=== PATIENT | male | born 1990 | race Caucasian/White ===

== ENCOUNTER 2017-07-31 17:17 | Emergency (ER) | payer BC, SELFPAY ==
[2017-07-31 17:17] VITALS: BP 128/83; PULSE 73; RESP 16; TEMP 36.4; O2SAT 98; BMI 24.3
--- NOTE | 2017-07-31 18:05 | RAD_ITS ---
XR Foot Min 3 Views INDICATION: LEFT FOOT AND ANKLE PAIN AFTER BASKETBALL INJURY COMPARISON: None TECHNIQUE: 3 views of the left foot FINDINGS: The osseous structures are intact and well aligned. Joint spaces are preserved. There is no evidence of fracture or dislocation. RAD/Foot min 3 Views IMPRESSION: Negative plain film examination of the left foot at 1854 Reported and signed by: Xiao Feng MD Electronically Signed: Xiao Feng MD at 17:52 EDT Tel , Service support ,
--- NOTE | 2017-07-31 18:05 | RAD_ITS ---
XR Ankle Min 3 Views INDICATION: LEFT FOOT AND ANKLE PAIN AFTER BASKETBALL INJURY COMPARISON: None TECHNIQUE: 3 views of the left ankle FINDINGS: Lateral soft tissue swelling is noted. Ankle mortise is intact. Osseous structures are intact and well aligned. RAD/Ankle min 3 Views IMPRESSION: Lateral soft tissue swelling at the left ankle, no evidence of fracture or dislocation. at 1932 Reported and signed by: Xiao Feng MD Electronically Signed: Xiao Feng MD at 18:30 EDT Tel , Service support ,
--- NOTE | 2017-07-31 18:46 | ED.DCSUM_ITS ---
- ER Visit Summary Date of Service: 07/31/17 Chief Complaint: Left ankle pain History of Present Illness: The patient is a 27 M presenting with left ankle pain. Patient states he was playing basketball and twisted his ankle yesterday. He did not completely fall to the floor. He has had painful ambulation today. He denies other injuries. Physical Examination: Vitals are stable. Patient is afebrile. Alert no acute distress. HEENT exam is unremarkable. Lungs are clear and equal bilaterally. Heart is regular rate and rhythm. Extremities left lateral malleolus tenderness with swelling and ecchymosis. No fifth metatarsal tenderness. No proximal fibular tenderness. No Achilles tendon tenderness. Skin is warm and dry. No focal neurologic deficit. Remainder of exam is unremarkable. Emergency Department Course and Treatment: Ice pack was applied. X-ray of the left foot shows no acute process. X-ray of the left ankle shows soft tissue swelling with no fracture. He has crutches. He is given an Aircast. Given a prescription for Naprosyn. Advised to follow-up with Dr Dias front end java developer for no doc. Advised return ED if worsening complaints. Disposition: Discharged home Impression: Left ankle sprain This note was generated with [employer] dictation software. It may contain incorrect words, spelling, and punctuation that were not noted in review of the chart prior to signing ED Disposition - Plan for ED Patient: Chief Complaint: Lower Extremity Injury Referrals: Care Physician,No Primary [Primary Care Provider] -
--- NOTE | 2017-07-31 19:43 | ED.DEP ---
ED Disposition - Plan for ED Patient: Chief Complaint: Lower Extremity Injury Instructions: ED Sprain Ankle W X Ray Prescriptions: Naproxen [Naprosyn] 500 mg PO BID PRN #20 tablet Referrals: Care Physician,Maribell Primary [Primary Care Provider] - Nadine Dias DO [STAFF PHYSICIAN] -
[2017-07-31 19:58] VITALS: RESP 18
== END 2017-07-31 19:59 | disposition home or self-care (01) ==
PROVIDERS: Emergency Provider Emergency Medicine
DX: S93.402A Sprain of unspecified ligament of left ankle, initial encounter (principal); Z72.0 Tobacco use; X50.1XXA Overexertion from prolonged static or awkward postures, initial encounter; Y93.67 Activity, basketball; Y92.89 Other specified places as the place of occurrence of the external cause; Y99.8 Other external cause status
CPT/HCPCS: 73610; 73630; 99283